=== PATIENT | female | born 1950 ===

== ENCOUNTER 2023-10-09 08:00 | Outpatient (CLI) | payer OTHER ==
[~2023-10-09] VITALS: Ht 165.1 cm; Wt 71.7 kg
[2023-10-09] MEDS ORDERED: RESTORIL15 MG PO (15:30)
[2023-10-09] MEDS ORDERED: LIPITOR20 MG PO (15:31)
== END 2023-10-09 08:01 | disposition home or self-care (01) ==
LOC: RAD 08:00 → SURH 10-12 09:15 → EDSTATUS 10-12 12:00
PROVIDERS: ATTEND Surgery
DX: I10 Essential (primary) hypertension (principal); K43.0 Incisional hernia with obstruction, without gangrene